=== PATIENT | female | born 1970 | race Two or more races ===

== ENCOUNTER 2017-10-20 22:38 | Emergency (ER) | payer MEDICAID ==
[~2017-10-20] VITALS: Ht 154.9 cm; Wt 59.0 kg
[~2017-10-20 22:38] MED LIST: MOTRIN
[2017-10-20 23:10] VITALS: BP 127/76
== END 2017-10-21 06:20 | disposition home or self-care (01) ==
LOC: ER 22:42
DX: S92.351A Displaced fracture of fifth metatarsal bone, right foot, initial encounter for closed fracture (principal); W10.8XXA Fall (on) (from) other stairs and steps, initial encounter; Y93.89 Activity, other specified; Y92.89 Other specified places as the place of occurrence of the external cause; Y99.8 Other external cause status
CPT/HCPCS: 73600; 73630; 99284; L3260

== ENCOUNTER 2018-06-02 15:31 | Emergency (ER) | payer MEDICAID ==
[~2018-06-02] VITALS: Ht 180.3 cm; Wt 55.8 kg
[2018-06-02 15:40] VITALS: BP 123/79
[2018-06-02] MEDS ORDERED: methylPREDNISolone SOD SUCC 125 MG/2 ML VL IM ONE (19:15)
[2018-06-02] MEDS ORDERED: ACETAMINOPHEN 500 MG TAB PO ONE (19:45)
[2018-06-02] MEDS ORDERED: BACLOFEN 10 MG TAB PO ONE (19:45)
== END 2018-06-02 20:08 | disposition home or self-care (01) ==
LOC: ER 15:31
DX: M62.838 Other muscle spasm (principal); M54.2 Cervicalgia; R51 Headache
CPT/HCPCS: 70450; 72125; 96372; 99284; J2930

== ENCOUNTER 2018-11-02 22:43 | Emergency (ER) | payer MEDICAID ==
[~2018-11-02] VITALS: Ht 154.9 cm; Wt 55.8 kg
[2018-11-02 23:51] LABS: Urine Bacteria FEW /hpf (None Seen); Urine Blood TRACE /uL (Negative); Urine Specific Gravity 1.016 (1.001-1.035); Urine WBC 4 /hpf (0 - 5)
[2018-11-03 00:45] LABS: Basophils # (auto) 0.1 uL; Eosinophils # (auto) 0.1 uL; Eosinophils % (auto) 1.5 % (0.0-7.0); Hematocrit 38.8 % (36.0-46.0); Hemoglobin 13.5 g/dL (12.2-16.2); Lymphocytes # (auto) 2.1 uL; Lymphocytes % (auto) 30.5 % (10.0-50.0); Mean Corpuscular Hemoglobin 29.4 pg (28.0-32.0); Mean Corpuscular Hgb Conc. 34.7 g/dL (32.0-36.0); Mean Corpuscular Volume 84.9 fL (80.0-100.0); Monocytes # (auto) 0.6 uL; Monocytes % (auto) 8.6 % (0.0-12.0); Neutrophils # (auto) 4.1 uL; Neutrophils % (auto) 58.4 % (37.0-80.0); Nucleated Red Blood Cells % 0.1 %; Platelet Count (auto) 186 10^3/uL (140-450); Red Blood Cells 4.57 10^6/uL (4.0-5.20); Red Cell Distribution Width 16.3 % (11.8-14.3)
[2018-11-03 01:03] LABS: Potassium 4.1 mmol/L (3.5-5.1)
[2018-11-03 01:13] LABS: Bilirubin, Total 0.2 mg/dL (0.2-1.0); Total Protein 7.4 g/dL (6.4-8.2)
[2018-11-03 01:32] LABS: Albumin 3.7 g/dL (3.4-5.0); BUN/Creatinine Ratio 19.7; Calcium 9.1 mg/dL (8.5-10.1)
[2018-11-03 02:30] VITALS: BP 135/98
[2018-11-03] MEDS ORDERED: ONDANSETRON HCL 4 MG/2 ML VIAL ONE (04:06)
[2018-11-03] MEDS ORDERED: MORPHINE SULFATE 4 MG/ML SYR/VIAL ONE (04:06)
[2018-11-03] MEDS ORDERED: MORPHINE SULFATE 4 MG/ML SYR/VIAL IV ONE (04:15)
[2018-11-03] MEDS ORDERED: ONDANSETRON HCL 4 MG/2 ML VIAL IV ONE (04:15)
== END 2018-11-03 04:38 | disposition home or self-care (01) ==
LOC: ER 22:51
DX: N20.0 Calculus of kidney (principal)
CPT/HCPCS: 36415; 74176; 80053; 81001; 85025; 96374; 96375; 99284; J2270; J2405

== ENCOUNTER 2019-09-21 04:09 | Emergency (ER) | payer MEDICAID ==
[~2019-09-21] VITALS: Ht 154.9 cm; Wt 56.3 kg
[2019-09-21 04:35] VITALS: BP 141/84
== END 2019-09-21 06:58 | disposition left against medical advice (07) ==
LOC: ER 04:09
DX: R53.1 Weakness (principal); Z53.21 Procedure and treatment not carried out due to patient leaving prior to being seen by health care provider

== ENCOUNTER 2020-08-04 09:53 | Emergency (ER) | payer MEDICAID ==
[~2020-08-04] VITALS: Ht 154.9 cm; Wt 72.6 kg
[2020-08-04 10:35] LABS: Urine Bacteria MOD /hpf (None Seen); Urine Blood Negative /uL (Negative); Urine Budding Yeast OCCASIONAL /hpf (None Seen); Urine Mucus FEW (None Seen); Urine Specific Gravity 1.027 (1.001-1.035); Urine WBC 25 /hpf (0 - 5)
[2020-08-04] MEDS ORDERED: MORPHINE SULFATE 4 MG/ML SYR/VIAL IV ONE (11:00)
[2020-08-04] MEDS ORDERED: ONDANSETRON HCL 4 MG/2 ML VIAL IV ONE (11:00)
[2020-08-04 11:05] LABS: Albumin 3.6 g/dL (3.4-5.0); Calcium 8.1 mg/dL (8.5-10.1); Potassium 4.2 mmol/L (3.5-5.1)
[2020-08-04 11:08] LABS: BUN/Creatinine Ratio 28.1; Bilirubin, Total 0.5 mg/dL (0.2-1.0); Total Protein 7.6 g/dL (6.4-8.2)
[2020-08-04 11:14] LABS: Hemoglobin 14.1 g/dL (12.2-16.2); Red Cell Distribution Width 12.3 % (11.8-14.3); White Blood Cell 5.8 10^3/uL (4.4-10.8)
[2020-08-04 11:18] LABS: Basophils # (auto) 0 10 ^3/uL (0-0.2); Basophils % (auto) 0.8 % (0.0-2.0); Eosinophils # (auto) 0 10 ^3/uL (0-0.8); Eosinophils % (auto) 0.8 % (0.0-7.0); Hematocrit 39.9 % (36.0-46.0); Lymphocytes # (auto) 1.4 10 ^3/uL (0.4-5.4); Lymphocytes % (auto) 24.1 % (10.0-50.0); Mean Corpuscular Hemoglobin 32.6 pg (28.0-32.0); Mean Corpuscular Hgb Conc. 35.3 g/dL (32.0-36.0); Mean Corpuscular Volume 92.4 fL (80.0-100.0); Monocytes # (auto) 0.4 10 ^3/uL (0-1.3); Monocytes % (auto) 6.8 % (0.0-12.0); Neutrophils # (auto) 3.9 10 ^3/uL (1.6-8.6); Neutrophils % (auto) 67.5 % (37.0-80.0); Nucleated Red Blood Cells % 0.1 %; Platelet Count (auto) 216 10^3/uL (140-450); Red Blood Cells 4.32 10^6/uL (4.0-5.20)
[2020-08-04] MEDS ORDERED: ONDANSETRON HCL 4 MG/2 ML VIAL IM ONE (11:30)
[2020-08-04] MEDS ORDERED: MORPHINE SULFATE 4 MG/ML SYR/VIAL IM ONE (11:30)
[2020-08-04] MEDS ORDERED: ONDANSETRON ODT 4 MG TAB PO ONE (11:45)
[2020-08-04] MEDS ORDERED: KETOROLAC TROMETH 60MG/2ML VIAL IM ONE (11:45)
[2020-08-04] MEDS ORDERED: cefTRIAXone SOD 1,000 MG VL IM ONE (12:00)
[2020-08-04 12:24] VITALS: BP 144/90
== END 2020-08-04 14:42 | disposition home or self-care (01) ==
LOC: ER 09:53
DX: R20.0 Anesthesia of skin (principal); N39.0 Urinary tract infection, site not specified
CPT/HCPCS: 36415; 74176; 76830; 76856; 80053; 81001; 85025; 96372; 99285; J0696; J1885; J7030; Q0162; J2405

== ENCOUNTER 2021-06-22 09:17 | Inpatient (IN) | payer MEDICAID ==
[~2021-06-22] VITALS: Ht 154.9 cm; Wt 58.2 kg
[2021-06-22 12:10] LABS: Urine Bacteria FEW /hpf (None Seen); Urine Blood 3+ /uL (Negative); Urine Mucus FEW (None Seen); Urine Specific Gravity 1.024 (1.001-1.035); Urine WBC 50 /hpf (0 - 5)
[2021-06-22] MEDS ORDERED: KETOROLAC TROMETH 30 MG/ML 1ML VIAL IV ONE (13:15)
[2021-06-22] MEDS ORDERED: cefTRIAXone 1GM/50ML D5W 50 ML IV ONE (13:15)
[2021-06-22] MEDS ORDERED: TAMSULOSIN HYDROCHLORIDE 0.4 MG CAP PO ONE ×2 (13:15→16:45)
[2021-06-22] MEDS ORDERED: SODIUM CHLORIDE 0.9% 1,000 ML IV ONE ×2 (13:15→14:30)
[2021-06-22 13:54] LABS: Basophils # (auto) 0 10 ^3/uL (0-0.2); Basophils % (auto) 0.5 % (0.0-2.0); Eosinophils # (auto) 0 10 ^3/uL (0-0.8); Eosinophils % (auto) 0.4 % (0.0-7.0); Hemoglobin 12.3 g/dL (12.2-16.2); Lymphocytes # (auto) 0.6 10 ^3/uL (0.4-5.4); Lymphocytes % (auto) 7.4 % (10.0-50.0); Mean Corpuscular Hemoglobin 31.9 pg (28.0-32.0); Mean Corpuscular Hgb Conc. 35.1 g/dL (32.0-36.0); Mean Corpuscular Volume 91.1 fL (80.0-100.0); Monocytes # (auto) 0.5 10 ^3/uL (0-1.3); Monocytes % (auto) 6.5 % (0.0-12.0); Neutrophils # (auto) 6.3 10 ^3/uL (1.6-8.6); Neutrophils % (auto) 85.2 % (37.0-80.0); Red Blood Cells 3.84 10^6/uL (4.0-5.20); Red Cell Distribution Width 13.2 % (11.8-14.3); White Blood Cell 7.4 10^3/uL (4.4-10.8)
[2021-06-22 14:13] LABS: Calcium 8.2 mg/dL (8.5-10.1); Potassium 3.4 mmol/L (3.5-5.1)
[2021-06-22 14:16] LABS: BUN/Creatinine Ratio 21.5
[2021-06-22] MEDS ORDERED: MORPHINE SULFATE INJECTION 2 MG/ML SYRG IV ONE (15:00)
[2021-06-22] MEDS ORDERED: ONDANSETRON HCL 4 MG/2 ML VIAL IV ONE (15:00)
[2021-06-22] MEDS ORDERED: MORPHINE SULFATE INJECTION 2 MG/ML SYRG IV PRN ×3 (15:30→16:45)
[2021-06-22] MEDS ORDERED: NITROGLYCERIN 0.4 MG SL TAB SL PRN ×3 (15:30→16:45)
[2021-06-22] MEDS ORDERED: TEMAZEPAM 15 MG CAP PO PRN (16:45)
[2021-06-22] MEDS ORDERED: DOCUSATE SOD 100 MG CAP PO PRN (16:45)
[2021-06-22] MEDS: SODIUM CHLORIDE 0.9% 1,000 ML IV SCH ×2 (16:45→23:54)
[2021-06-22] MEDS ORDERED: ONDANSETRON HCL 4 MG/2 ML VIAL IV PRN (16:45)
[2021-06-22] MEDS ORDERED: HYDROcodone-ACET 5/325MG TAB PO PRN (16:45)
[2021-06-22] MEDS ORDERED: hydrALAZINE HCL 20 MG/ML VL IV PRN (16:45)
[2021-06-22] MEDS: MORPHINE SULFATE 4 MG/ML SYR/VIAL IV PRN ×3 (17:38→22:45)
[2021-06-22] MEDS: ACETAMINOPHEN 325 MG TAB PO PRN (20:09)
[2021-06-22] MEDS ORDERED: MANNITOL FTV 25% 12.5 GM/50 ML 50 ML IV ONE (20:15)
[2021-06-22] MEDS: ASCORBIC ACID 500 MG TAB PO SCH (22:00)
[2021-06-22 23:15] VITALS: BP 130/82
[2021-06-23] MEDS ORDERED: GAB100C PO (00:18)
[2021-06-23] MEDS ORDERED: ACE3T PO (00:18)
[2021-06-23] MEDS ORDERED: ONDA-144 PO (00:18)
[2021-06-23] MEDS ORDERED: ACET-1156 PO (00:18)
[2021-06-23] MEDS ORDERED: IBU600T PO (00:19)
[2021-06-23] MEDS: ACETAMINOPHEN 325 MG TAB PO PRN ×2 (04:17→09:59)
[2021-06-23 05:30] LABS: Basophils # (auto) 0 10 ^3/uL (0-0.2); Basophils % (auto) 0.6 % (0.0-2.0); Eosinophils # (auto) 0 10 ^3/uL (0-0.8); Eosinophils % (auto) 0.4 % (0.0-7.0); Hematocrit 30.2 % (36.0-46.0); Hemoglobin 10.8 g/dL (12.2-16.2); Lymphocytes # (auto) 0.8 10 ^3/uL (0.4-5.4); Lymphocytes % (auto) 14.5 % (10.0-50.0); Mean Corpuscular Hemoglobin 32.3 pg (28.0-32.0); Mean Corpuscular Hgb Conc. 35.7 g/dL (32.0-36.0); Mean Corpuscular Volume 90.5 fL (80.0-100.0); Monocytes # (auto) 0.5 10 ^3/uL (0-1.3); Monocytes % (auto) 9.7 % (0.0-12.0); Neutrophils # (auto) 3.9 10 ^3/uL (1.6-8.6); Neutrophils % (auto) 74.8 % (37.0-80.0); Red Blood Cells 3.33 10^6/uL (4.0-5.20); Red Cell Distribution Width 13.3 % (11.8-14.3); White Blood Cell 5.2 10^3/uL (4.4-10.8)
[2021-06-23 05:41] LABS: Albumin 2.2 g/dL (3.4-5.0); Calcium 7.3 mg/dL (8.5-10.1); Potassium 3.6 mmol/L (3.5-5.1)
[2021-06-23 05:43] LABS: BUN/Creatinine Ratio 15.2
[2021-06-23 05:45] LABS: Bilirubin, Total 0.3 mg/dL (0.2-1.0); Total Protein 5.5 g/dL (6.4-8.2)
[2021-06-23] MEDS: MORPHINE SULFATE 4 MG/ML SYR/VIAL IV PRN ×4 (05:46→18:40)
[2021-06-23] MEDS: SODIUM CHLORIDE 0.9% 1,000 ML IV SCH ×2 (09:25→17:45)
[2021-06-23] MEDS: ZINC SULFATE 220mg CAP or TAB PO SCH (09:59)
[2021-06-23] MEDS: ASCORBIC ACID 500 MG TAB PO SCH ×2 (09:59→21:16)
[2021-06-23] MEDS: ENOXAPARIN SOD 40 MG/0.4 ML SYRINGE SC SCH (09:59)
[2021-06-23] MEDS: MULTIPLE VITAMIN TAB PO SCH (09:59)
[2021-06-23] MEDS ORDERED: ACETAMINOPHEN 325 MG TAB PO PRN (17:30)
[2021-06-23] MEDS: TAMSULOSIN HYDROCHLORIDE 0.4 MG CAP PO SCH (18:40)
[2021-06-23] MEDS ORDERED: diphenhdrAMINE HCL 25 MG CAP PO PRN (20:45)
[2021-06-23] MEDS: cefTRIAXone 1GM/50ML D5W 50 ML IV SCH (21:12)
[2021-06-23] MEDS: DexAMETHasone INJECTION 10 MG in D5W 5% 50 ML IV SCH (22:19)
[2021-06-23] MEDS: METOCLOPRAMIDE HCL 10 MG TAB PO SCH (22:20)
[2021-06-23 22:42] LABS: INR 0.97 (0.9-1.15)
[2021-06-24] MEDS: SODIUM CHLORIDE 0.9% 1,000 ML IV SCH ×4 (00:25→23:43)
[2021-06-24] MEDS: METOCLOPRAMIDE HCL 10 MG TAB PO SCH ×3 (05:41→22:19)
[2021-06-24 05:49] VITALS: BP 144/94
[2021-06-24 07:04] LABS: Basophils # (auto) 0 10 ^3/uL (0-0.2); Basophils % (auto) 0.3 % (0.0-2.0); Eosinophils # (auto) 0 10 ^3/uL (0-0.8); Eosinophils % (auto) 0.1 % (0.0-7.0); Hematocrit 34.9 % (36.0-46.0); Lymphocytes # (auto) 0.6 10 ^3/uL (0.4-5.4); Lymphocytes % (auto) 14.3 % (10.0-50.0); Mean Corpuscular Hemoglobin 31.4 pg (28.0-32.0); Mean Corpuscular Hgb Conc. 34.4 g/dL (32.0-36.0); Mean Corpuscular Volume 91.5 fL (80.0-100.0); Monocytes # (auto) 0.2 10 ^3/uL (0-1.3); Monocytes % (auto) 3.9 % (0.0-12.0); Neutrophils # (auto) 3.6 10 ^3/uL (1.6-8.6); Neutrophils % (auto) 81.4 % (37.0-80.0); Nucleated Red Blood Cells % 0.6 %; Red Blood Cells 3.82 10^6/uL (4.0-5.20); Red Cell Distribution Width 13.6 % (11.8-14.3); White Blood Cell 4.4 10^3/uL (4.4-10.8)
[2021-06-24 07:46] LABS: Potassium 3.9 mmol/L (3.5-5.1)
[2021-06-24 07:51] LABS: BUN/Creatinine Ratio 16.1; Calcium 8.1 mg/dL (8.5-10.1)
[2021-06-24 09:00] VITALS: BP 132/79
[2021-06-24] MEDS: MULTIPLE VITAMIN TAB PO SCH (09:19)
[2021-06-24] MEDS: ENOXAPARIN SOD 40 MG/0.4 ML SYRINGE SC SCH (09:19)
[2021-06-24] MEDS: ASCORBIC ACID 500 MG TAB PO SCH ×2 (09:19→22:19)
[2021-06-24] MEDS: ZINC SULFATE 220mg CAP or TAB PO SCH (09:19)
[2021-06-24 14:00] VITALS: BP 135/91
[2021-06-24 17:00] VITALS: BP 137/81
[2021-06-24] MEDS: TAMSULOSIN HYDROCHLORIDE 0.4 MG CAP PO SCH (18:20)
[2021-06-24] MEDS: cefTRIAXone 1GM/50ML D5W 50 ML IV SCH (21:06)
[2021-06-24 21:55] VITALS: BP 129/105
[2021-06-24] MEDS: DexAMETHasone INJECTION 10 MG in D5W 5% 50 ML IV SCH (22:00)
[2021-06-25 04:37] VITALS: BP 147/86
[2021-06-25] MEDS: METOCLOPRAMIDE HCL 10 MG TAB PO SCH ×2 (06:07→14:00)
[2021-06-25] MEDS: SODIUM CHLORIDE 0.9% 1,000 ML IV SCH ×4 (06:07→20:01)
[2021-06-25 09:00] VITALS: BP 142/75
[2021-06-25] MEDS: MULTIPLE VITAMIN TAB PO SCH (10:00)
[2021-06-25] MEDS: ASCORBIC ACID 500 MG TAB PO SCH (10:00)
[2021-06-25] MEDS: ZINC SULFATE 220mg CAP or TAB PO SCH (10:00)
[2021-06-25] MEDS: ENOXAPARIN SOD 40 MG/0.4 ML SYRINGE SC SCH (10:00)
[2021-06-25 13:00] VITALS: BP 146/88
[2021-06-25 17:00] VITALS: BP 146/88
[2021-06-25] MEDS: TAMSULOSIN HYDROCHLORIDE 0.4 MG CAP PO SCH (18:00)
[2021-06-25 19:19] VITALS: BP 146/88
== END 2021-06-25 20:00 | disposition home or self-care (01) | DRG 463 ==
LOC: ER 09:17 → TELE 15:40 → TELE-WESTW 23:00
PROVIDERS: ADMIT Internal Medicine; ATTEND Internal Medicine
DX: N13.6 Pyonephrosis (principal); E43 Unspecified severe protein-calorie malnutrition; M54.50 Low back pain, unspecified; N83.209 Unspecified ovarian cyst, unspecified side; Z20.822 Contact with and (suspected) exposure to COVID-19; Z80.8 Family history of malignant neoplasm of other organs or systems; Z83.3 Family history of diabetes mellitus; Z87.440 Personal history of urinary (tract) infections; Z87.442 Personal history of urinary calculi; Z68.24 Body mass index [BMI] 24.0-24.9, adult
CPT/HCPCS: 36415; 70450; 74018; 74176; 80048; 80053; 81001; 85025; 85610; 87081; 87426; 96365; 96372; G0378; J0696; J1100; J1885; J2405; J7060

== ENCOUNTER 2022-01-28 08:04 | Emergency (ER) | payer MEDICAID ==
[~2022-01-28] VITALS: Ht 154.9 cm; Wt 56.0 kg
[~2022-01-28 08:04] MED LIST changes: +ACE3T PO; +ACET-1156 PO; +GAB100C PO; +IBU600T PO; -MOTRIN; +ONDA-144 PO
[2022-01-28 08:36] VITALS: BP 114/77
[2022-01-28] MEDS ORDERED: CEPH-509 PO (08:42)
[2022-01-28] MEDS ORDERED: INDO50SU PO (08:42)
[2022-01-28] MEDS ORDERED: IBUPROFEN 800 MG TAB PO ONE (08:45)
== END 2022-01-28 08:54 | disposition home or self-care (01) ==
LOC: ER 08:04
DX: S90.465A Insect bite (nonvenomous), left lesser toe(s), initial encounter (principal); Z79.899 Other long term (current) drug therapy; W57.XXXA Bitten or stung by nonvenomous insect and other nonvenomous arthropods, initial encounter; Y93.89 Activity, other specified; Y92.89 Other specified places as the place of occurrence of the external cause; Y99.8 Other external cause status
CPT/HCPCS: 73630

== ENCOUNTER 2022-02-11 17:51 | Emergency (ER) | payer MEDICAID ==
[~2022-02-11] VITALS: Ht 154.9 cm; Wt 60.4 kg
[~2022-02-11 17:51] MED LIST changes: +CEPH-509 PO; +INDO50SU PO
[2022-02-11 18:47] LABS: Basophils # (auto) 0.1 10 ^3/uL (0-0.2); Basophils % (auto) 0.8 % (0.0-2.0); Eosinophils # (auto) 0.1 10 ^3/uL (0-0.8); Eosinophils % (auto) 1.2 % (0.0-7.0); Hematocrit 39.9 % (36.0-46.0); Lymphocytes % (auto) 23.9 % (10.0-50.0); Mean Corpuscular Hemoglobin 31.3 pg (28.0-32.0); Mean Corpuscular Volume 89.2 fL (80.0-100.0); Monocytes # (auto) 0.6 10 ^3/uL (0-1.3); Monocytes % (auto) 7.1 % (0.0-12.0); Neutrophils # (auto) 5.6 10 ^3/uL (1.6-8.6); Nucleated Red Blood Cells % 0.1 %; Red Blood Cells 4.48 10^6/uL (4.0-5.20); White Blood Cell 8.4 10^3/uL (4.4-10.8)
[2022-02-11 18:58] LABS: Alanine Aminotransferase 17 U/L (13-56); Albumin 3.8 g/dL (3.4-5.0); Anion Gap 7 (5-15); Aspartate Aminotransferase 20 U/L (15-37); BUN/Creatinine Ratio 22.5; Blood Urea Nitrogen 18 mg/dL (7-18); Calcium 8.4 mg/dL (8.5-10.1); Carbon Dioxide 24 mmol/L (21-32); Chloride 109 mmol/L (98-107); GFR African American 97 mL/min; GFR Non-African American 80 mL/min; Glucose 105 mg/dL (74-106); Potassium 4.3 mmol/L (3.5-5.1); Sodium 140 mmol/L (136-145)
[2022-02-11 19:01] LABS: Alkaline Phosphatase 91 U/L (45-117); Bilirubin, Total 0.5 mg/dL (0.2-1.0); Total Protein 7.6 g/dL (6.4-8.2)
[2022-02-11 19:02] LABS: Urine Bacteria NONE SEEN /hpf (None Seen); Urine Blood 3+ /uL (Negative); Urine Mucus FEW (None Seen); Urine Specific Gravity 1.018 (1.001-1.035); Urine WBC 561 /hpf (0 - 5); Urine WBC Clumps PRESENT /hpf (None Seen)
[2022-02-11] MEDS ORDERED: NITR-87 PO (19:35)
[2022-02-11] MEDS ORDERED: cefTRIAXone SOD 1,000 MG VL IM ONE (19:45)
[2022-02-11 20:23] VITALS: BP 145/94
== END 2022-02-11 20:30 | disposition home or self-care (01) ==
LOC: ER 17:51
DX: N39.0 Urinary tract infection, site not specified (principal); R07.89 Other chest pain; Z79.1 Long term (current) use of non-steroidal anti-inflammatories (NSAID); Z79.899 Other long term (current) drug therapy
CPT/HCPCS: 36415; 71045; 80053; 81001; 85025

== ENCOUNTER 2023-05-03 11:58 | Emergency (ER) | payer MEDICAID ==
[~2023-05-03] VITALS: Ht 154.9 cm; Wt 60.5 kg
[~2023-05-03 11:58] MED LIST changes: -ACET-1156 PO; +ACET-1881 PO; +NITR-87 PO
[2023-05-03 11:59] VITALS: BP 140/93; RESP 18; O2SAT 97
[2023-05-03 12:31] LABS: Basophils # (auto) 0.1 10 ^3/uL (0-0.2); Basophils % (auto) 1.8 % (0.0-2.0); Eosinophils # (auto) 0.1 10 ^3/uL (0-0.8); Eosinophils % (auto) 2.6 % (0.0-7.0); Hematocrit 42.3 % (36.0-46.0); Hemoglobin 14.6 g/dL (12.2-16.2); Lymphocytes # (auto) 2.6 10 ^3/uL (0.4-5.4); Lymphocytes % (auto) 46.7 % (10.0-50.0); Mean Corpuscular Hemoglobin 31.4 pg (28.0-32.0); Mean Corpuscular Hgb Conc. 34.5 g/dL (32.0-36.0); Mean Corpuscular Volume 90.8 fL (80.0-100.0); Monocytes # (auto) 0.4 10 ^3/uL (0-1.3); Monocytes % (auto) 7.1 % (0.0-12.0); Neutrophils # (auto) 2.3 10 ^3/uL (1.6-8.6); Neutrophils % (auto) 41.8 % (37.0-80.0); Nucleated Red Blood Cells % 0.1 %; Red Blood Cells 4.66 10^6/uL (4.0-5.20); Red Cell Distribution Width 13.6 % (11.8-14.3); White Blood Cell 5.5 10^3/uL (4.4-10.8)
[2023-05-03 12:34] LABS: Urine Bacteria FEW /hpf (None Seen); Urine Blood Negative /uL (Negative); Urine Clarity HAZY (Clear); Urine Color Yellow (Yellow); Urine Hyaline Cast FEW /lpf (0 - 2); Urine Mucus FEW (None Seen); Urine Protein, UAD TRACE (Negative); Urine Specific Gravity 1.024 (1.001-1.035); Urine WBC 2 /hpf (0 - 5)
[2023-05-03 12:44] LABS: Alanine Aminotransferase 44 U/L (7-40); Albumin 4.3 g/dL (3.2-4.8); Alkaline Phosphatase 121 U/L (46-116); Anion Gap 7 (5-15); Aspartate Aminotransferase 36 U/L (13-40); BUN/Creatinine Ratio 11.8 (10.0-20.0); Blood Urea Nitrogen 9 mg/dL (9-23); Calcium 8.9 mg/dL (8.7-10.4); Carbon Dioxide 25 mmol/L (20-30); Chloride 106 mmol/L (98-107); Glucose 122 mg/dL (74-106); Sodium 138 mmol/L (136-145)
[2023-05-03 12:45] LABS: Bilirubin, Total 0.7 mg/dL (0.2-1.0); Total Protein 7.2 g/dL (5.7-8.2)
[2023-05-03 13:04] VITALS: PULSE 70
[2023-05-03] MEDS ORDERED: IBU600T PO (16:13)
== END 2023-05-03 16:32 | disposition home or self-care (01) ==
LOC: ER 11:58
DX: I51.4 Myocarditis, unspecified (principal); I10 Essential (primary) hypertension; E78.5 Hyperlipidemia, unspecified; Z79.1 Long term (current) use of non-steroidal anti-inflammatories (NSAID); Z79.899 Other long term (current) drug therapy
CPT/HCPCS: 36415; 71045; 80053; 81001; 84484; 85025; 93005

== ENCOUNTER 2025-03-10 03:02 | Inpatient (IN) | payer MEDICAID ==
[~2025-03-10] VITALS: Ht 154.9 cm; Wt 62.1 kg
--- NOTE | 2025-03-10 03:56 | DVH ---
CHEST RADIOGRAPH Indication: SYNCOPY Technique: Frontal and lateral view of the chest was obtained Comparison: XY CHEST PORTABLE on DOS: 05/03/23, CHEST PORTABLE on DOS: 02/11/22 FINDINGS: Lines and Tubes: None Lungs: Clear Pleura: No effusion. No pneumothorax. Cardiomediastinal contours: Unremarkable Bones: Unremarkable IMPRESSION: 1. No evidence of acute disease.
--- NOTE | 2025-03-10 03:59 | DVH ---
EXAM: CT HEAD WITHOUT CONTRAST INDICATION: syncope TECHNIQUE: CT of the head without intravenous contrast. Radiation Dose : 1. Head: CT Dose: CTDI volume is 55.21 mGy. Dose-length product is 977.23 mGy*cm The dose indicators for CT are the volume Computed Tomography (CT) Dose Index (CTDIvol) and the Dose Length Product (DLP), and are measured in units of mGy and mGy-cm, respectively. These indicators are not patient dose, but values generated from the CT scanner acquisition factors. The report includes radiation exposure data for exposures received during this examination. COMPARISON: HEAD WITHOUT CONTRAST on DOS: 06/25/21, HEAD WITHOUT CONTRAST on DOS: 06/24/21 FINDINGS: There is no evidence of acute intracranial hemorrhage, extra-axial collection, mass effect, midline s hift, herniation or hydrocephalus. The ventricles, sulci and cisterns are age appropriate. The carvalho-white differentiation is intact. The visualized paranasal sinuses and mastoid air cells are clear. The surrounding soft tissues and osseous structures are unremarkable. IMPRESSION: 1. No acute intracranial abnormality. Radiation optimization: All CT scans at this facility use at least one of these dose optimization colton hniques: automated exposure control mA and/or kV adjustment per patient size (includes targeted exam s where dose is matched to clinical indication) or iterative reconstruction.
[2025-03-10 04:03] LABS: Hematocrit 40.0 % (36.0-46.0); Hemoglobin 14.3 g/dL (12.2-16.2); Mean Corpuscular Hemoglobin 31.6 pg (28.0-32.0); Mean Corpuscular Volume 88.4 fL (80.0-100.0); Nucleated Red Blood Cells % 0.1 %
[2025-03-10 04:16] LABS: Alanine Aminotransferase 15 U/L (7-40); Anion Gap 10 (5-15); BUN/Creatinine Ratio 21.1 (10.0-20.0); Blood Urea Nitrogen 16 mg/dL (9-23); Calcium 9.2 mg/dL (8.7-10.4); Carbon Dioxide 22 mmol/L (20-31); Chloride 106 mmol/L (98-107); Glucose 100 mg/dL (74-106); Potassium 4.1 mmol/L (3.5-5.1); Sodium 138 mmol/L (136-145); Total Protein 7.6 g/dL (5.7-8.2)
[2025-03-10 04:17] LABS: Albumin 4.5 g/dL (3.2-4.8); Bilirubin, Total 0.4 mg/dL (0.2-1.0)
[2025-03-10 04:31] LABS: Alkaline Phosphatase 120 U/L (46-116)
[2025-03-10 05:08] LABS: Urine Protein, UAD Negative (Negative)
--- NOTE | 2025-03-10 05:36 | ED.PDOC ---
History of Present Illness HPI Comments 54 y/o F presents with c/c of syncope. Patient endorses on passing out at home, this morning, after becoming, suddenly, dizzy and standing up, immediately, afterwards. Patient comments on coming to and feeling better since prior to coming to the ED, with some mild residual dizziness. Endorsement of history of passing out in the past when giving or having blood drawn. No pertinent novel events reported, with exception of patient taking her Indapamide, Prempro, and Atenolol at the same time, last night. Denial of any further acute symptoms. Chief Complaint: Syncope Time Seen by MD: 05:00 Primary Care Provider: Yamini Reviewed Notes: Nurses Notes, Medications, Allergies Allergies: Coded Allergies: NO KNOWN ALLERGIES (Unverified , 12/22/09) Home Meds Active Scripts Ibuprofen Micronized (MOTRIN TABLET) 600 Mg Tb, 600 MG PO TID PRN for 5 Days, #15 TAB *Black box warning-NSAIDS can increase risk of VT & hypertension, GI irritation, ulceration, bleed, perferation. Do not use post cardiac surgery. Use short duration/lowest effective dose. Prov:DAVID HUNG MD 05/03/23 Nitrofurantoin Monohydrate Mac (Macrobid) 100 Mg Cap, 100 MG PO BID for 10 Days, #20 CAP Prov:DAVID HUNG MD 02/11/22 Cephalexin (KEFLEX 500) 500 Mg Cap, 1 CAP PO QID, #28 CAP Prov:EDMUNDO TOVAR 01/28/22 Indomethacin (Indocin) 50 Mg Sup, 50 MG PO TID, #30 TAB Prov:EDMUNDO TOVAR 01/28/22 Reported Medications Ibuprofen Micronized (MOTRIN TABLET) 600 Mg Tb, 800 MG PO TID, #40 TAB *Black box warning-NSAIDS can increase risk of VT & hypertension, GI irritation, ulceration, bleed, perferation. Do not use post cardiac surgery. Use short duration/lowest effective dose. 06/23/21 Acetaminophen (Acetaminophen) 325 Mg Tab, 325 MG PO Q4HP PRN for MILD PAIN for 30 Days, MG 0 Refills 06/23/21 Acetaminophen W/ Codeine (Tylenol W/Cod #3) 1 Tab Tb, 1 TAB PO Q8HPRN, TAB 06/23/21 Ondansetron (Zofran) 4 Mg Tab, 4 MG PO Q8HPRN PRN for NAUSEA / VOMITING 06/23/21 Gabapentin (Gabapentin) 100 Mg Cap, 100 MG PO HS 06/23/21 Mode of Arrival: Ambulatory Past Medical History PAST MEDICAL HISTORY: Anxiety, High Lipids, HTN, Kidney Stones, UTI'S Surgical History: SECURITY SHIFT MANAGER History: No Pertinent SECURITY SHIFT MANAGER History, Ovarian Cysts, Uterine Fibroids Family History Family History: Reviewed,noncontributory to illness Social History Smoker: Non-Smoker Alcohol: Denies ETOH Use Drugs: Denies Drug Use Lives In: Home All Other Systems: Reviewed and Negative (Comprehensive review of systems are negative unless otherwise stated in HPI or above ) Physical Exam General Appearance: No Apparent Distress, Normal HEENT: Normal ENT Inspection, Pharynx Normal, TMs Normal Neck: Full Range of Motion, Non-Tender, Normal, Normal Inspection Respiratory: Chest Non-Tender, Lungs Clear, No Accessory Muscle Use, No Respiratory Distress, Normal Breath Sounds Cardiovascular: No Edema, No JVD, No Murmur, No Gallop, Normal Peripheral Pulses, Regular Rate/Rhythm Breast Exam: Deferred Gastrointestinal: No Organomegaly, Non Tender, No Pulsatile Mass, Normal Bowel Sounds, Soft Genitalia: Deferred Pelvic: Deferred Rectal: Deferred Extremities: No calf tenderness, Normal capillary refill, Normal inspection, Normal range of motion, Non-tender, No pedal edema Musculoskeletal : Apperance: Normal Neurologic: Alert, road tester II-XII nml as Tested, No Motor Deficits, Normal Affect, Normal Mood, No Sensory Deficits Cerebellar Function: Normal Reflexes: Normal Skin: Dry, Normal Color, Warm Lymphatic: No Adenopathy Was a procedure done? Was a procedure done?: No Differential Dx Considerations may include: vasovagal response, dehydration, electrolyte imbalance, vertigo, closed head injury, among others X-Ray, Labs, Meds, VS Vital Signs Date Time Temp Pulse Resp B/P (MAP) Pulse Ox O2 Delivery O2 Flow Rate FiO2 03/10/25 03:11 98.0 81 16 131/98 95 98.0 Lab Test 03/10/25 04:00 03/10/25 03:46 Range/Units Urine Color Light-yellow Yellow Urine Clarity Clear Clear Urine pH 6.0 5.0-9.0 Urine Specific [place] 1.026 1.001-1.035 Urine Protein Negative Negative Urine Ketones Negative Negative Urine Blood Trace H Negative /uL Urine Nitrite Negative Negative Urine Bilirubin Negative Negative Urine Urobilinogen Normal Negative mg/dL Urine Leukocyte Esterase 1+ Negative /uL Urine RBC 4 0 - 4 /hpf Urine Microscopic WBC 4 0-5 /HPF Urine Squamous Epithelial Cells Few <5 /hpf Urine Bacteria Few H None Seen /hpf Urine Glucose Normal Normal mg/dL White Blood Count 5.3 4.4-10.8 10^3/uL Red Blood Count 4.53 4.0-5.20 10^6/uL Hemoglobin 14.3 12.2-16.2 g/dL Hematocrit 40.0 36.0-46.0 % Mean Corpuscular Volume 88.4 80.0-100.0 fL Mean Corpuscular Hemoglobin 31.6 28.0-32.0 pg Mean Corpuscular Hemoglobin Concent 35.7 32.0-36.0 g/dL Red Cell Distribution Width 12.4 11.8-14.3 % Platelet Count 176 140-450 10^3/uL Mean Platelet Volume 8.6 6.9-10.8 fL Neutrophils (%) (Auto) 34.4 L 37.0-80.0 % Lymphocytes (%) (Auto) 50.5 H 10.0-50.0 % Monocytes (%) (Auto) 11.4 0.0-12.0 % Eosinophils (%) (Auto) 2.5 0.0-7.0 % Basophils (%) (Auto) 1.2 0.0-2.0 % Neutrophils # (Auto) 1.8 1.6-8.6 10 ^3/uL Lymphocytes # (Auto) 2.7 0.4-5.4 10 ^3/uL Monocytes # (Auto) 0.6 0-1.3 10 ^3/uL Eosinophils # (Auto) 0.1 0-0.8 10 ^3/uL Basophils # (Auto) 0.1 0-0.2 10 ^3/uL Nucleated Red Blood Cells 0.1 % Sodium Level 138 136-145 mmol/L Potassium Level 4.1 3.5-5.1 mmol/L Chloride Level 106 98-107 mmol/L Carbon Dioxide Level 22 20-31 mmol/L Anion Gap 10 5-15 Blood Urea Nitrogen 16 9-23 mg/dL Creatinine 0.76 0.550-1.02 mg/dL Glomerular Filtration Rate Calc 93 >90 mL/min BUN/Creatinine Ratio 21.1 H 10.0-20.0 Serum Glucose 100 74-106 mg/dL Calcium Level 9.2 8.7-10.4 mg/dL Total Bilirubin 0.4 0.2-1.0 mg/dL Aspartate Amino Transferase (AST) 21 13-40 U/L Alanine Aminotransferase (ALT) 15 7-40 U/L Alkaline Phosphatase 120 H 46-116 U/L Troponin I High Sensitivity < 3 L </=34 ng/L Total Protein 7.6 5.7-8.2 g/dL Albumin 4.5 3.2-4.8 g/dL [place] [address] Ph: [phone] DIAGNOSTIC IMAGING Diagnostic Imaging Report : [id number] Signed PATIENT: TONY SHELTON ACCT: [id number] UNIT: [id number] : 1970 LOC: ER ROOM / BED: / AGE / SEX: 54 / F ADM STATUS: REG ER SERVICE 0330 ORDERING PHYSICIAN: LIGIA ALANIZ MD PROCEDURE(s): HWOCT - HEAD WITHOUT CONTRAST REASON: syncope ORDER NUMBER(s): [id number], ACCESSION NUMBER(s): [id number] EXAM: CT HEAD WITHOUT CONTRAST INDICATION: syncope TECHNIQUE: CT of the head without intravenous contrast. Radiation Dose : 1. Head: CT Dose: CTDI volume is 55.21 mGy. Dose-length product is 977.23 mGy*cm The dose indicators for CT are the volume Computed Tomography (CT) Dose Index (CTDIvol) and the Dose Length Product (DLP), and are measured in units of mGy and mGy-cm, respectively. These indicators are not patient dose, but values generated from the CT scanner acquisition factors. The report includes radiation exposure data for exposures received during this examination. COMPARISON: HEAD WITHOUT CONTRAST on DOS: 06/25/21, HEAD WITHOUT CONTRAST on DOS: 06/24/21 FINDINGS: There is no evidence of acute intracranial hemorrhage, extra-axial collection, mass effect, midline shift, herniation or hydrocephalus. The ventricles, sulci and cisterns are age appropriate. The carvalho-white differentiation is intact. The visualized paranasal sinuses and mastoid air cells are clear. The surrounding soft tissues and osseous structures are unremarkable. IMPRESSION: 1. No acute intracranial abnormality. Radiation optimization: All CT scans at this facility use at least one of these dose optimization techniques: automated exposure control mA and/or kV adjustment per patient size (includes targeted exams where dose is matched to clinical indication) or iterative reconstruction. ATED BY: VIDAL DOWLING MD DICTATED DATE/TIME: 03/10/25355 SIGNED BY: VIDAL DOWLING MD SIGNED DATE/TIME: 03/10/25355 CC: [place] [address] Ph: [phone] DIAGNOSTIC IMAGING Diagnostic Imaging Report : [id number] Signed PATIENT: TONY SHELTON ACCT: [id number] UNIT: [id number] : 1970 LOC: ER ROOM / BED: / AGE / SEX: 54 / F ADM STATUS: REG ER SERVICE 6 ORDERING PHYSICIAN: RENEA VELIZ PROCEDURE(s): CXR2 - CHEST TWO VIEWS ROUTINE REASON: SYNCOPY ORDER NUMBER(s): [id number], ACCESSION NUMBER(s): [id number] CHEST RADIOGRAPH Indication: SYNCOPY Technique: Frontal and lateral view of the chest was obtained Comparison: XY CHEST PORTABLE on DOS: 05/03/23, CHEST PORTABLE on DOS: 02/11/22 FINDINGS: Lines and Tubes: None Lungs: Clear Pleura: No effusion. No pneumothorax. Cardiomediastinal contours: Unremarkable Bones: Unremarkable IMPRESSION: 1. No evidence of acute disease. ATED BY: VIDAL DOWLING MD DICTATED DATE/TIME: 03/10/25353 SIGNED BY: VIDAL DOWLING MD SIGNED DATE/TIME: 03/10/25353 CC: Time of 1ST Reevaluation: 05:30 Reevaluation 1ST: Unchanged Patient Education/Counseling: Diagnosis, Treatment, Need For Follow Up Family Education/Counseling: No Family Present SEPSIS Sepsis Screen Date sepsis recognized/suspect: Mar 10, 2025 Time Sepsis recognized/suspect: 314 Recent Procedure: No On Antibiotic Therapy: No Respiratory Rate >20: No Heart Rate >90: No Temp<36 C (96.8 F) or >38.3 C: No SBP <90 or MAP <65 mmHG: No New Acute Mental Status Change: No Is the patient on CPAP, BIPAP,: No Physician Orders Electrocardigram (03/10/25 03:24) Electrocardigram (03/10/25 04:24) Chest Two Views Routine (03/10/25 03:27) Head Without Contrast (03/10/25 03:30) Troponin-I Hs (03/10/25 04:30) Troponin-I Hs (03/10/25 06:30) Vital Signs Date Time Temp Pulse Resp B/P (MAP) Pulse Ox O2 Delivery O2 Flow Rate FiO2 03/10/25 03:11 98.0 81 16 131/98 95 98.0 Laboratory Tests Test 03/10/25 03:46 White Blood Count 5.3 10^3/uL (4.4-10.8) Departure 1 Departure Time of Disposition: 06:05 (Patient presented with syncope today and should be admitted. Data: 1. I ordered and reviewed the result of at least 3 labs including a CBC, BMP, and troponin. 2. I independently interpreted the following tests: EKG which shows a normal sinus and a chest x-ray which shows benign chest and a CT head which shows benign brain.Risk:This patient has a high risk of morbidity due to further diagnostic testing or treatment and may suffer from an acute cardiac, neurologic, or infectious disorder. Rationale: Patient should be admitted to the hospital for further management.) Impression: Primary Impression: Syncope and collapse Disposition: ADMITTED INPATIENT Admit to: Tele Condition: Guarded Critical Care Note Critical Care Time?: Yes Critical care comment: Syncope and collapse Authorized and Performed by: Ligia Alaniz MD Total critical care time: Approximately 36 minutes Due to a high probability of clinically significant, life threatening deterioration, the patient required my highest level of preparedness to intervene emergently and I personally spent this critical care time directly and personally managing the patient. This critical care time included obtaining a history; examining the patient; pulse oximetry; ordering and review of studies; arranging urgent treatment with development of a management plan; evaluation of patient's response to treatment; frequent reassessment; and, discussions with other providers. This critical care time was performed to assess and manage the high probability of imminent, life-threatening deterioration that could result in multi-organ failure. It was exclusive of separately billable procedures and treating other patients and teaching time. Please see my other sections and the rest of the note for further information on patient assessment and treatment. Stability Stability form required: No Heart Score Heart Score: Heart Score Response (Comments) Value History N/A 0 EKG N/A 0 Age N/A 0 Risk Factors N/A 0 Troponin N/A 0 Total 0 I personally scribed for LIGIA ALANIZ MD ([email or web address]) on 03/10/25 at 05:36. Electronically submitted by Leroy Ferraro ([email or web address]). I personally scribed for LIGIA ALANIZ MD ([email or web address]) on 03/10/25 at 06:03. Electronically submitted by Leroy Ferraro ([email or web address]). LIGIA ALANIZ MD Mar 10, 2025 05:36
[2025-03-10 10:26] VITALS: BP 131/87; PULSE 71; RESP 16; TEMP 97.6; O2SAT 94
[2025-03-10] MEDS ORDERED: ACETAMINOPHEN 325 MG TAB PO PRN (13:30)
[2025-03-10] MEDS ORDERED: MORPHINE SULFATE INJ 2 MG/ml SYRG IV PRN ×2 (13:30)
[2025-03-10] MEDS ORDERED: ONDANSETRON HCL 4 MG/2 ML VIAL IV PRN (13:30)
[2025-03-10] MEDS ORDERED: NITROGLYCERIN 0.4 MG SL TAB SL PRN (13:30)
[2025-03-10] MEDS ORDERED: DOCUSATE SOD 100 MG CAP PO PRN (13:30)
[2025-03-10 14:27] LABS: INR 0.96 (0.9-1.15); Partial Thromboplastin Time 29.2 SEC (24.5-34.5); Prothrombin Time 10.2 sec (9.3-11.8)
[2025-03-10 14:31] LABS: Magnesium 2.1 mg/dL (1.6-2.6)
[2025-03-10 14:33] LABS: Cholesterol 179 mg/dL (< 200)
[2025-03-10 14:35] LABS: HDL Cholesterol 32 mg/dL (40-59); Triglycerides 529 mg/dL (< 150)
--- NOTE | 2025-03-10 17:10 | DVHHPRES ---
History of Present Illness Resident Creating Document: ANNEL HOBBS RESIDENT History of Present Illness Suri Youngblood is a 54-year-old female patient who presents to the ED with chief complaint of transient loss of consciousness with no head trauma which lasted sec, positive for prodromes of dizziness, stabbing chest pain and palpitation. Patient's suspects symptoms started after recent trip to [place] where she completed physical activity. Patient also reports abnormal gait (per patient she lateralizes towards the left when she walks), profuse sweating and also upper respiratory infection symptoms. Patient also reports several months of dyspnea in retrosternal oppressive chest pain in Functional Class I which used to not happened to (per patient she is an active swimmer and before was able to swim without feeling winded). Denies any other associated symptom. Past medical history: Hypertension, dyslipidemia, questionable thyroid disease, ovarian cysts and bladder mass status post resection, hot flashes. Surgical history: Bilateral oophorectomy in 2019 due to ovarian cysts, bladder mass resection (both non malignant) Family history: Early [place] in two cousins Social history: Lives in [place] with offsprings (next of kin is a son). Ex tobacco abuse (one pack-year history of smoking) quit approximately 40 years ago. Denies current tobacco, alcohol and other drug abuse Allergies: Denies Home medication: Acetaminophen, atenolol and Prempro (estrogen and progesterone hormonal replacement therapy) Patient seen and examined at bedside. Currently her symptoms have improved, but she does present profuse sweating which she associates with hot flashes. Past Medical History Per HPI Past Surgical History Per HPI Family History Per HPI Past Social History Per HPI Review of Systems Review of Systems Per HPI Allergies: Coded Allergies: NO KNOWN ALLERGIES (Unverified , 12/22/09) Medications Current Medications Medications Dose Ordered Sig/Pete Route Start Time Stop Time Status Last Admin Dose Admin Docusate Sodium 100 mg BIDPRN PRN PO 03/10/25 13:30 Ondansetron HCl 4 mg Q4HP PRN IV 03/10/25 13:30 Morphine Sulfate 2 mg Q4HPRN PRN IV 03/10/25 13:30 Enoxaparin Sodium 40 mg DAILY SC 03/11/25 10:00 Nitroglycerin 0.4 mg Q5MINP PRN SL 03/10/25 13:30 Morphine Sulfate 2 mg Q30M PRN IV 03/10/25 13:30 Acetaminophen 325 mg Q4HP PRN PO 03/10/25 13:30 Gabapentin 100 mg HS PO 03/10/25 22:00 Ergocalciferol 50,000 unit Q7D PO 03/10/25 17:15 UNV Aspirin 81 mg DAILY PO 03/11/25 10:00 UNV Atorvastatin Calcium 40 mg HS PO 03/10/25 22:00 UNV Exam Vital Signs Vital Signs Date Time Temp Pulse Resp B/P (MAP) Pulse Ox O2 Delivery O2 Flow Rate FiO2 03/10/25 10:26 97.6 71 16 131/87 (102) 94 97.6 Exam Patient lying in bed, in no acute distress General: Lucid, afebrile, mucosae are moist, generalized sweating Cardiovascular: Normal S1 and S2. No murmurs, gallops or rubs Respiratory: Normal ventilation mechanics. Clear lung sounds on auscultation Abdomen: Soft, nontender, no organomegaly, normal bowel sounds MSK/skin: Mobilizes 4 limbs. Skin is dry and warm Neurological: Oriented in 3 spheres. No motor no sensitive deficits. Pupils are isocoric and reactive Labs/Xrays Labs Test 03/10/25 13:49 03/10/25 06:22 03/10/25 04:00 03/10/25 03:46 Range/Units Prothrombin Time 10.2 9.3-11.8 sec Prothrombin Time INR 0.96 0.9-1.15 Activated Partial Thromboplast Time 29.2 24.5-34.5 SEC Lactic Acid Level 0.8 0.4-2.0 mmol/L Vitamin B12 Level 496 211-911 pg/mL Vitamin D 25-Hydroxy 26.5 L 30.0-100 ng/mL Magnesium Level 2.1 1.6-2.6 mg/dL Troponin I High Sensitivity < 3 L </=34 ng/L Triglycerides Level 529 H < 150 mg/dL Cholesterol Level 179 < 200 mg/dL LDL Cholesterol < 100 mg/dL HDL Cholesterol 32 L 40-59 mg/dL Thyroid Stimulating Hormone (TSH) 0.77 0.55-4.78 uIU/mL Urine Color Light-yellow Yellow Urine Clarity Clear Clear Urine pH 6.0 5.0-9.0 Urine Specific [place] 1.026 1.001-1.035 Urine Protein Negative Negative Urine Ketones Negative Negative Urine Blood Trace H Negative /uL Urine Nitrite Negative Negative Urine Bilirubin Negative Negative Urine Urobilinogen Normal Negative mg/dL Urine Leukocyte Esterase 1+ Negative /uL Urine RBC 4 0 - 4 /hpf Urine Microscopic WBC 4 0-5 /HPF Urine Squamous Epithelial Cells Few <5 /hpf Urine Bacteria Few H None Seen /hpf Urine Glucose Normal Normal mg/dL White Blood Count 5.3 4.4-10.8 10^3/uL Red Blood Count 4.53 4.0-5.20 10^6/uL Hemoglobin 14.3 12.2-16.2 g/dL Hematocrit 40.0 36.0-46.0 % Mean Corpuscular Volume 88.4 80.0-100.0 fL Mean Corpuscular Hemoglobin 31.6 28.0-32.0 pg Mean Corpuscular Hemoglobin Concent 35.7 32.0-36.0 g/dL Red Cell Distribution Width 12.4 11.8-14.3 % Platelet Count 176 140-450 10^3/uL Mean Platelet Volume 8.6 6.9-10.8 fL Neutrophils (%) (Auto) 34.4 L 37.0-80.0 % Lymphocytes (%) (Auto) 50.5 H 10.0-50.0 % Monocytes (%) (Auto) 11.4 0.0-12.0 % Eosinophils (%) (Auto) 2.5 0.0-7.0 % Basophils (%) (Auto) 1.2 0.0-2.0 % Neutrophils # (Auto) 1.8 1.6-8.6 10 ^3/uL Lymphocytes # (Auto) 2.7 0.4-5.4 10 ^3/uL Monocytes # (Auto) 0.6 0-1.3 10 ^3/uL Eosinophils # (Auto) 0.1 0-0.8 10 ^3/uL Basophils # (Auto) 0.1 0-0.2 10 ^3/uL Nucleated Red Blood Cells 0.1 % Sodium Level 138 136-145 mmol/L Potassium Level 4.1 3.5-5.1 mmol/L Chloride Level 106 98-107 mmol/L Carbon Dioxide Level 22 20-31 mmol/L Anion Gap 10 5-15 Blood Urea Nitrogen 16 9-23 mg/dL Creatinine 0.76 0.550-1.02 mg/dL Glomerular Filtration Rate Calc 93 >90 mL/min BUN/Creatinine Ratio 21.1 H 10.0-20.0 Serum Glucose 100 74-106 mg/dL Hemoglobin A1c 5.4 <5.7 % A1C Calcium Level 9.2 8.7-10.4 mg/dL Total Bilirubin 0.4 0.2-1.0 mg/dL Aspartate Amino Transferase (AST) 21 13-40 U/L Alanine Aminotransferase (ALT) 15 7-40 U/L Alkaline Phosphatase 120 H 46-116 U/L Total Protein 7.6 5.7-8.2 g/dL Albumin 4.5 3.2-4.8 g/dL SEPSIS Sepsis Screen Date sepsis recognized/suspect: Mar 10, 2025 Time Sepsis recognized/suspect: 314 Recent Procedure: No On Antibiotic Therapy: No Respiratory Rate >20: No Heart Rate >90: No Temp<36 C (96.8 F) or >38.3 C: No SBP <90 or MAP <65 mmHG: No New Acute Mental Status Change: No Is the patient on CPAP, BIPAP,: No Physician Orders Admit (03/10/25 13:27) Code Status (03/10/25 13:27) Vital Signs .PER UNIT PROTOCOL (03/10/25 13:27) Review Orders With Adm. (03/10/25 13:27) Docusate Sodium Capsule (Colace Capsule) (03/10/25 13:30) Notify Md Of Changes From Base (03/10/25 13:27) Advance Directive (03/10/25 13:27) Echo 2d Mode Cardiac Dop (03/10/25 13:27) Patient Condition (03/10/25 13:27) Allergies (03/10/25 13:27) Ondansetron Hcl (Zofran) (03/10/25 13:30) Morphine Sulfate Injection (03/10/25 13:30) Enoxaparin Sodium (Lovenox) (03/11/25 10:00) Nitroglycerin Sublingual (Ntrostat Subli (03/10/25 13:30) Morphine Sulfate Injection (03/10/25 13:30) Oxygen By Nasal Cannula (03/10/25 13:27) Stat Ekg For Chest Pain (03/10/25 13:27) Notify Md Of Changes From Base (03/10/25 13:27) Car Builder For 24 Hours (03/10/25 13:27) Emergency Dysrhythmia Protocol (03/10/25 13:27) Rhythm Strips Once Every Shift (03/10/25 13:27) Acetaminophen Tablet (Tylenol Tablet) (03/10/25 13:30) Gabapentin Capsule (Neurontin Capsule) (03/10/25 22:00) Urine Bacterial Culture (03/10/25 13:27) Drug Screen (03/10/25 13:37) Covid19 Antigen Keila (03/10/25 ) Rapid Influenza A&B (03/10/25 17:05) Ergocalciferol (Vitamin D 50,000 Unit) (03/10/25 17:15) Aspirin Tablet (03/11/25 10:00) Atorvastatin (Lipitor) (03/10/25 22:00) Carotid Duplx W Color Dop (03/10/25 17:05) Complete Blood Count (03/11/25 04:00) Basic Metabolic Panel (03/11/25 04:00) Vital Signs Date Time Temp Pulse Resp B/P (MAP) Pulse Ox O2 Delivery O2 Flow Rate FiO2 03/10/25 10:26 97.6 71 16 131/87 (102) 94 97.6 Laboratory Tests Test 03/10/25 13:49 Lactic Acid Level 0.8 mmol/L (0.4-2.0) Assessment/Plan Assessment/Plan # Syncope - probable orthostatic # Rule out acute coronary syndrome Troponin x3 negative, ordered EKG (pending). Noncardiac chest pain (probable musculoskeletal). Ordered echocardiogram. Order orthostatic vital signs Ordered carotid ultrasound Head CT showed no acute intracranial pathology Until obtaining echocardiogram and EKG, initiated aspirin and atorvastatin since patient is on hormone replacement has presented bilateral oophorectomy since 2019, increasing chances of coronary artery disease. # Upper respiratory infection-rule out COVID/influenza Ordered COVID and influenza swab Chest x-ray showed no acute intrathoracic disease # Asymptomatic bacteriuria Urinalysis shows positive esterase and elevated white blood count Patient has no symptoms, we will monitor. # Hypertension # Dyslipidemia Continue home medication (atenolol and acetaminophen) Gave her advice on healthy lifestyle habits Start patient on atorvastatin until acute coronary syndrome is ruled out # Questionable thyroid disease Ordered TSH level which was within normal limits (0.77) # History of ovarian cyst - status post Bilateral oophorectomy # Menopausal hot flashes - on hormonal replacement therapy # History of bladder benign mass status postop Recommend following up with PCP to evaluate hormonal replacement therapy # Vitamin-D deficiency Replenished Goals of care discussed with patient for over 18 minutes: Full code status Discussed plan with Dr. Fournier, patient and nurses: Patient admitted to telemetry for syncopal episode. Preliminary heart score of two points (pending EKG), initiated aspirin atorvastatin until obtaining complete workup. Plan discussed with: Patient, Other (Nurses) My Orders Orders - ANNEL HOBBS RESIDENT Procedure Category Date Status Time Admit ADMIT 03/10/25 Transmitted 13:27 Code Status CODE 03/10/25 Transmitted 13:27 Vital Signs LATISHA 03/10/25 In Process 13:27 Review Orders With [facility] 03/10/25 In Process Adm. 13:27 Docusate Sodium PHA 03/10/25 In Process Capsule (Colace 13:30 Notify Md Of Changes LATISHA 03/10/25 In Process From Base 13:27 Advance Directive LATISHA 03/10/25 In Process 13:27 Echo 2d Mode Cardiac US 03/10/25 Logged DOP 13:27 Patient Condition ORDERS 03/10/25 Transmitted 13:27 Allergies LATISHA 03/10/25 In Process 13:27 Ondansetron Hcl PHA 03/10/25 In Process (Zofran) 13:30 Morphine Sulfate PHA 03/10/25 In Process Injection 13:30 Enoxaparin Sodium PHA 03/11/25 In Process (Lovenox) 10:00 Nitroglycerin PHA 03/10/25 In Process Sublingual (Ntrostat 13:30 Morphine Sulfate PHA 03/10/25 In Process Injection 13:30 Oxygen By Nasal RT 03/10/25 Transmitted Cannula 13:27 Stat Ekg For Chest LATISHA 03/10/25 In Process Pain 13:27 Notify Md Of Changes LATISHA 03/10/25 In Process From Base 13:27 Car Builder For LATISHA 03/10/25 In Process 24 Hours 13:27 Emergency Dysrhythmia LATISHA 03/10/25 In Process Protocol 13:27 Rhythm Strips Once LATISHA 03/10/25 In Process Every Shift 13:27 Acetaminophen Tablet PHA 03/10/25 In Process (Tylenol Tablet) 13:30 Gabapentin Capsule PHA 03/10/25 In Process (Neurontin Capsule) 22:00 Urine Bacterial ROSANA 03/10/25 Logged Culture 13:27 Drug Screen LAB 03/10/25 Logged 13:37 Covid19 Antigen Keila LAB 03/10/25 Logged Rapid Influenza A&B LAB 03/10/25 Logged 17:05 Ergocalciferol PHA 03/10/25 Logged (Vitamin D 50,000 17:15 Aspirin Tablet PHA 03/11/25 Logged 10:00 Atorvastatin (Lipitor) PHA 03/10/25 Logged 22:00 Carotid Duplx W Color US 03/10/25 Logged DOP 17:05 Complete Blood Count LAB 03/11/25 Verified 04:00 Basic Metabolic Panel LAB 03/11/25 Verified 04:00 Date of Service: Mar 10, 2025 Billing Provider: JANICE FOURNIER MD Common Visit Codes: [id number] INP/OBS CARE (HIGH) Secondary Visit Codes: [id number] CARE PLAN 30 MINUTES ANNEL HOBBS RESIDENT Mar 10, 2025 17:10 JANICE FOURNIER MD Mar 13, 2025 22:27
--- NOTE | 2025-03-10 18:27 | DVH ---
CLINICAL HISTORY: Syncope TECHNIQUE: Oh-scale, color and duplex doppler imaging of the bilateral carotid systems was performe d. COMPARISON: None Findings: Right carotid system: There is no plaque present in the right carotid system. Left carotid system: There is no plaque present in the left carotid system. The following flow velocities were obtained (Cm/sec). Right carotid System: ICA PSV: 94 Cm/sec ICA PDV: 39 Cm/sec ICA/CCA Ratio: 1.1 Left carotid System: ICA PSV: 81 Cm/sec ICA PDV: 36 Cm/sec ICA/CCA Ratio: .8 The right and left common carotid and external carotid arteries are patent. There is antegrade flow i n both vertebral arteries and external carotid arteries. IMPRESSION: NORMAL RIGHT CAROTID SYSTEM. NORMAL LEFT CAROTID SYSTEM. Estimation of carotid stenosis is based on velocity parameters that correlate the residual internal c arotid Diameter with that of the more distal vessel in accordance with the [place] symptomatic Carotid Endarterectomy trial (NASCET).
[2025-03-10] MEDS: ERGOCALCIFEROL 50,000 UNIT(1.25MG) CAP PO SCH (18:38)
[2025-03-10] MEDS ORDERED: GABAPENTIN 100 MG CAP PO SCH (22:00)
[2025-03-10] MEDS ORDERED: ATORVASTATIN 20 MG TAB PO SCH (22:00)
[2025-03-10 22:58] LABS: Amphetamine Screen, Urine Neg (NEGATIVE); Barbiturate Scree,Urine Neg (NEGATIVE); Benzodiazephine Screen, Urine Neg (NEGATIVE); Cannabinoid Screen, Urine Neg (NEGATIVE); Cocaine Screen, Urine Neg (NEGATIVE); Opiate Scree,Urine Neg (NEGATIVE); Phencyclidine Screen, Urine Neg (NEGATIVE)
--- NOTE | 2025-03-11 09:07 | DVHDSRES ---
Discharge Summary Date of Admission Resident Creating Document: ANNEL HOBBS RESIDENT Mar 10, 2025 at 13:27 Date of Discharge: Mar 11, 2025 Labs/Diagnostic Data: Laboratory Results Test 03/10/25 13:49 03/10/25 06:22 03/10/25 04:00 03/10/25 03:46 Prothrombin Time 10.2 sec (9.3-11.8) Prothrombin Time INR 0.96 (0.9-1.15) Activated Partial Thromboplast Time 29.2 SEC (24.5-34.5) Lactic Acid Level 0.8 mmol/L (0.4-2.0) Vitamin B12 Level 496 pg/mL (211-911) Vitamin D 25-Hydroxy 26.5 ng/mL (30.0-100) Magnesium Level 2.1 mg/dL (1.6-2.6) Troponin I High Sensitivity < 3 ng/L (</=34) Triglycerides Level 529 mg/dL (< 150) Cholesterol Level 179 mg/dL (< 200) LDL Cholesterol mg/dL (< 100) HDL Cholesterol 32 mg/dL (40-59) Thyroid Stimulating Hormone (TSH) 0.77 uIU/mL (0.55-4.78) Urine Color Light-yellow (Yellow) Urine Clarity Clear (Clear) Urine pH 6.0 (5.0-9.0) Urine Specific [place] 1.026 (1.001-1.035) Urine Protein Negative (Negative) Urine Ketones Negative (Negative) Urine Blood Trace /uL (Negative) Urine Nitrite Negative (Negative) Urine Bilirubin Negative (Negative) Urine Urobilinogen Normal mg/dL (Negative) Urine Leukocyte Esterase 1+ /uL (Negative) Urine RBC 4 /hpf (0 - 4) Urine Microscopic WBC 4 /HPF (0-5) Urine Squamous Epithelial Cells Few /hpf (<5) Urine Bacteria Few /hpf (None Seen) Urine Glucose Normal mg/dL (Normal) Urine Opiates Screen Neg (NEGATIVE) Urine Fentanyl Screen Neg (NEGATIVE) Urine Barbiturates Screen Neg (NEGATIVE) Urine Phencyclidine Screen Neg (NEGATIVE) Urine Amphetamines Screen Neg (NEGATIVE) Urine Benzodiazepines Screen Neg (NEGATIVE) Urine Cocaine Screen Neg (NEGATIVE) Urine Cannabinoids Screen Neg (NEGATIVE) White Blood Count 5.3 10^3/uL (4.4-10.8) Red Blood Count 4.53 10^6/uL (4.0-5.20) Hemoglobin 14.3 g/dL (12.2-16.2) Hematocrit 40.0 % (36.0-46.0) Mean Corpuscular Volume 88.4 fL (80.0-100.0) Mean Corpuscular Hemoglobin 31.6 pg (28.0-32.0) Mean Corpuscular Hemoglobin Concent 35.7 g/dL (32.0-36.0) Red Cell Distribution Width 12.4 % (11.8-14.3) Platelet Count 176 10^3/uL (140-450) Mean Platelet Volume 8.6 fL (6.9-10.8) Neutrophils (%) (Auto) 34.4 % (37.0-80.0) Lymphocytes (%) (Auto) 50.5 % (10.0-50.0) Monocytes (%) (Auto) 11.4 % (0.0-12.0) Eosinophils (%) (Auto) 2.5 % (0.0-7.0) Basophils (%) (Auto) 1.2 % (0.0-2.0) Neutrophils # (Auto) 1.8 10 ^3/uL (1.6-8.6) Lymphocytes # (Auto) 2.7 10 ^3/uL (0.4-5.4) Monocytes # (Auto) 0.6 10 ^3/uL (0-1.3) Eosinophils # (Auto) 0.1 10 ^3/uL (0-0.8) Basophils # (Auto) 0.1 10 ^3/uL (0-0.2) Nucleated Red Blood Cells 0.1 % Sodium Level 138 mmol/L (136-145) Potassium Level 4.1 mmol/L (3.5-5.1) Chloride Level 106 mmol/L (98-107) Carbon Dioxide Level 22 mmol/L (20-31) Anion Gap 10 (5-15) Blood Urea Nitrogen 16 mg/dL (9-23) Creatinine 0.76 mg/dL (0.550-1.02) Glomerular Filtration Rate Calc 93 mL/min (>90) BUN/Creatinine Ratio 21.1 (10.0-20.0) Serum Glucose 100 mg/dL (74-106) Hemoglobin A1c 5.4 % A1C (<5.7) Calcium Level 9.2 mg/dL (8.7-10.4) Total Bilirubin 0.4 mg/dL (0.2-1.0) Aspartate Amino Transferase (AST) 21 U/L (13-40) Alanine Aminotransferase (ALT) 15 U/L (7-40) Alkaline Phosphatase 120 U/L (46-116) Total Protein 7.6 g/dL (5.7-8.2) Albumin 4.5 g/dL (3.2-4.8) Other Laboratory Tests 03/10/25 03:46 Brief Hx & Hospital Course: Suri Youngblood is a 54-year-old female patient who presents to the ED with chief complaint of transient loss of consciousness with no head trauma which lasted sec, positive for prodromes of dizziness, stabbing chest pain and palpitation. Patient's suspects symptoms started after recent trip to [place] where she completed physical activity. Patient also reports abnormal gait (per patient she lateralizes towards the left when she walks), profuse sweating and also upper respiratory infection symptoms. Patient also reports several months of dyspnea in retrosternal oppressive chest pain in Functional Class I which used to not happened (per patient she is an active swimmer and before was able to swim without feeling winded). Denies any other associated symptom. Past medical history: Hypertension, dyslipidemia, questionable thyroid disease, ovarian cysts and bladder mass status post resection, hot flashes. Surgical history: Bilateral oophorectomy in 2019 due to ovarian cysts, bladder mass resection (both non malignant) Family history: Early [place] in two cousins Social history: Lives in [place] with offsprings (next of kin is a son). Ex tobacco abuse (one pack-year history of smoking) quit approximately 40 years ago. Denies current tobacco, alcohol and other drug abuse Allergies: Denies Home medication: Acetaminophen, atenolol and Prempro (estrogen and progesterone hormonal replacement therapy) Brief hospital course: Syncope of unclear etiology, planning to rule out acute coronary syndrome (troponin x3 negative, noncardiac chest pain, pending EKG and echocardiogram) associated with upper respiratory infection symptoms in asymptomatic bacteriuria. Completed head CT which showed no acute intracranial pathology and carotid ultrasound which was within normal limits. Patient was admitted to telemetry, but eloped before connecting to telemetry device and completed complementary workup. Patient did not complete complementary workup, eloped before ruling out acute coronary syndrome and other etiologies of her syncope. Patient has undetermined prognosis. DIAGNOSIS # Syncope - probable orthostatic # Rule out acute coronary syndrome # Upper respiratory infection-rule out COVID/influenza # Asymptomatic bacteriuria # Hypertension # Dyslipidemia # Questionable thyroid disease # History of ovarian cyst - status post Bilateral oophorectomy # Menopausal hot flashes - on hormonal replacement therapy # History of bladder benign mass status postop # Vitamin-D deficiency Goals of care discussed with patient for over 18 minutes: Full code status Discussed plan with Dr. Fournier, patient and nurses Patient eloped before new physical examination was completed Operations or Procedures CHEST RADIOGRAPH Indication: SYNCOPY Technique: Frontal and lateral view of the chest was obtained Comparison: XY CHEST PORTABLE on DOS: 05/03/23, CHEST PORTABLE on DOS: 02/11/22 FINDINGS: Lines and Tubes: None Lungs: Clear Pleura: No effusion. No pneumothorax. Cardiomediastinal contours: Unremarkable Bones: Unremarkable IMPRESSION: 1. No evidence of acute disease. ATED BY: VIDAL DOWLING MD DICTATED DATE/TIME: 03/10/25 0354 EXAM: CT HEAD WITHOUT CONTRAST INDICATION: syncope TECHNIQUE: CT of the head without intravenous contrast. Radiation Dose : 1. Head: CT Dose: CTDI volume is 55.21 mGy. Dose-length product is 977.23 mGy*cm The dose indicators for CT are the volume Computed Tomography (CT) Dose Index (CTDIvol) and the Dose Length Product (DLP), and are measured in units of mGy and mGy-cm, respectively. These indicators are not patient dose, but values generated from the CT scanner acquisition factors. The report includes radiation exposure data for exposures received during this examination. COMPARISON: HEAD WITHOUT CONTRAST on DOS: 06/25/21, HEAD WITHOUT CONTRAST on DOS: 06/24/21 FINDINGS: There is no evidence of acute intracranial hemorrhage, extra-axial collection, mass effect, midline shift, herniation or hydrocephalus. The ventricles, sulci and cisterns are age appropriate. The oh-white differentiation is intact. The visualized paranasal sinuses and mastoid air cells are clear. The surrounding soft tissues and osseous structures are unremarkable. IMPRESSION: 1. No acute intracranial abnormality. Radiation optimization: All CT scans at this facility use at least one of these dose optimization techniques: automated exposure control mA and/or kV adjustment per patient size (includes targeted exams where dose is matched to clinical indication) or iterative reconstruction. ATED BY: VIDAL DOWLING MD DICTATED DATE/TIME: 03/10/25 0356 CLINICAL HISTORY: Syncope TECHNIQUE: Oh-scale, color and duplex doppler imaging of the bilateral carotid systems was performed. COMPARISON: None Findings: Right carotid system: There is no plaque present in the right carotid system. Left carotid system: There is no plaque present in the left carotid system. The following flow velocities were obtained (Cm/sec). Right carotid System: ICA PSV: 94 Cm/sec ICA PDV: 39 Cm/sec ICA/CCA Ratio: 1.1 Left carotid System: ICA PSV: 81 Cm/sec ICA PDV: 36 Cm/sec ICA/CCA Ratio: .8 The right and left common carotid and external carotid arteries are patent. There is antegrade flow in both vertebral arteries and external carotid arteries. IMPRESSION: NORMAL RIGHT CAROTID SYSTEM. NORMAL LEFT CAROTID SYSTEM. Estimation of carotid stenosis is based on velocity parameters that correlate the residual internal carotid Diameter with that of the more distal vessel in accordance with the [place] symptomatic Carotid Endarterectomy trial (NASCET). ATED BY: SEEMA JIMENEZ MD DICTATED DATE/TIME: 03/10/25 2792 Condition at Discharge: Undetermined Final Diagnosis/Problems List # Syncope - probable orthostatic # Rule out acute coronary syndrome # Upper respiratory infection-rule out COVID/influenza # Asymptomatic bacteriuria # Hypertension # Dyslipidemia # Questionable thyroid disease # History of ovarian cyst - status post Bilateral oophorectomy # Menopausal hot flashes - on hormonal replacement therapy # History of bladder benign mass status postop # Vitamin-D deficiency Discharge Disposition: Eloped SNF Discharge Will this Physician continue t: No Discharge Instruct/Medications Scheduled Acetaminophen W/ Codeine (Tylenol W/Cod #3), 1 TAB PO Q8HPRN, (Reported) Cephalexin (Keflex 500), 1 CAP PO QID Gabapentin (Gabapentin), 100 MG PO HS, (Reported) Ibuprofen Micronized (Motrin Tablet), 800 MG PO TID, (Reported) Indomethacin (Indocin), 50 MG PO TID Nitrofurantoin Monohydrate Mac (Macrobid), 100 MG PO BID Scheduled PRN Acetaminophen (Acetaminophen), 325 MG PO Q4HP PRN for MILD PAIN, (Reported) Ibuprofen Micronized (Motrin Tablet), 600 MG PO TID PRN Ondansetron (Zofran), 4 MG PO Q8HPRN PRN for NAUSEA / VOMITING, (Reported) Discharge Statement: "Patient was advised to return to the ER or call 911 if any headaches, dizziness, shortness of breath, chest pain, abdominal pain, bleeding, fevers, or worsening of medical condition. Patient was counseled about treatment plan, medications, possible side effects, patientverbalized understanding. All questions were answered to the best of my ability. This discharge took greater then 30 minutes in planning, reviewing documentation, counseling the patient, and discussing with other team members." ASSESSMENT ASSESSMENT Assessment Date of Service: Mar 11, 2025 Billing Provider: JANICE FOURNIER MD Common Visit Codes: [id number] DISCH DAY >30min ANNEL HOBBS RESIDENT Mar 11, 2025 09:07 JANICE FOURNIER MD Mar 13, 2025 22:44
[2025-03-11] MEDS ORDERED: ENOXAPARIN SOD 40 MG/0.4 ML SYRINGE SC SCH (10:00)
== END 2025-03-11 01:37 | disposition left against medical advice (07) | DRG 204 ==
LOC: ER 03:02 → OVERFLOW 13:27
PROVIDERS: ADMIT Internal Medicine; ATTEND Internal Medicine
DX: I95.1 Orthostatic hypotension (principal); I24.9 Acute ischemic heart disease, unspecified; I10 Essential (primary) hypertension; F41.9 Anxiety disorder, unspecified; R82.71 Bacteriuria; E78.5 Hyperlipidemia, unspecified; E55.9 Vitamin D deficiency, unspecified; N95.1 Menopausal and female climacteric states; R23.2 Flushing; J06.9 Acute upper respiratory infection, unspecified; E07.9 Disorder of thyroid, unspecified; Z79.890 Hormone replacement therapy; Z90.79 Acquired absence of other genital organ(s); Z87.442 Personal history of urinary calculi; Z87.448 Personal history of other diseases of urinary system
CPT/HCPCS: 36415; 70450; 71046; 80053; 80061; 80307; 81001; 82306; 82607; 83036; 83605; 83735; 84443; 84484; 85025; 85610; 85730; 87086; 93886; 99291; G0378